=== PATIENT | male | born 1995 | race American Indian/Alaskan Native ===

== ENCOUNTER 2020-10-11 11:59 | Emergency (ER) | payer SELFPAY ==
[2020-10-11 12:38] VITALS: BP 128/57
--- NOTE | 2020-10-11 12:45 | Emergency Department Report ---
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 Patient states that he took pain medication last night around 9 PM. He denies any past medical history currently takes no medications on a daily basis and has no past medical history. MD Complaint: foot injury (Great toe) -: Last night Injury: Toes: Right (Great toe) Type of Injury: other Severity scale (0 -10): 4 Context: direct blow - Related Data Allergies Allergy/AdvReac Type Severity Reaction Status Date / Time No Known Allergies Allergy Unverified 10/11/20 12:35 ED Review of Systems ROS: Stated complaint: WORK INJURY/RT BIG TOE INJURY Other details as noted in HPI Comment: All other systems reviewed and negative ED Past Medical Hx - Past Medical History Previous Medical History?: No - Surgical History Past Surgical History?: No ED Physical Exam - General Limitations: No Limitations General appearance: alert, in no apparent distress - Head Head exam: Present: atraumatic, normocephalic - Eye Eye exam: Present: normal appearance - Neck Neck exam: Present: normal inspection, full ROM - Respiratory Respiratory exam: Absent: accessory muscle use - Expanded Lower Extremity Exam Right Hip exam: Present: normal inspection Upper Leg exam: Present: normal inspection Knee exam: Present: normal inspection Lower Leg exam: Present: normal inspection Foot/Toe exam: Present: full ROM, tenderness (Great toe). Absent: swelling, erythema Neuro vascular tendon exam: Present: no vascular compromise - Back Exam Back exam: Present: normal inspection - Neurological Exam Neurological exam: Present: alert, oriented X3, normal gait - Psychiatric Psychiatric exam: Present: normal affect, normal mood - Skin Skin exam: Present: warm, dry, intact, normal color. Absent: rash ED Course Vital Signs 10/11/20 12:37 Temperature 98.1 F Pulse Rate 68 Respiratory 20 Rate Blood Pressure 128/57 O2 Sat by Pulse 100 Oximetry ED Lower Extremity MDM - Radiology Data Radiology results: report reviewed Patient: ELLEN VINSON MR#: [id number] : 1995 Acct:[id number] Age/Sex: 24 / M ADM Date: 10/11/20 Loc: ED Attending Dr: Ordering Physician: ISMAEL BAKER Date of Service: 10/11/20 Procedure(s): XR foot 2V RT Accession Number(s): [id number] cc: ISMAEL BAKER Fluoro Time In Minutes: RIGHT FOOT 2 VIEWS INDICATION / CLINICAL INFORMATION: Great toe injury COMPARISON: None available. FINDINGS: BONES / JOINT(S): No acute fracture or subluxation. No significant arthritis. SOFT TISSUES: No significant abnormality. ADDITIONAL FINDINGS: None. 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 Patient states that he took pain medication last night around 9 PM. He denies any past medical history currently takes no medications on a daily basis and has no past medical history. X-ray ordered. Critical care attestation.: If time is entered above; I have spent that time in minutes in the direct care of this critically ill patient, excluding procedure time. ED Disposition Clinical Impression: Injury of left great toe Disposition: DC-01 TO HOME OR SELFCARE Is pt being admited?: No Does the pt Need Aspirin: No Condition: Stable Additional Instructions: X-ray is negative for any dislocation fracture subluxation or arthritis. Recommend [id number] Tylenol or ibuprofen for pain management. Referrals: TONEY SHAW MD [Staff Physician] - 3-5 Days Forms: Work/School Release Form(ED)
--- NOTE | 2020-10-11 13:22 | XRay Report ---
RIGHT FOOT 2 VIEWS INDICATION / CLINICAL INFORMATION: Great toe injury COMPARISON: None available. FINDINGS: BONES / JOINT(S): No acute fracture or subluxation. No significant arthritis. SOFT TISSUES: No significant abnormality. ADDITIONAL FINDINGS: None. Signer Name: Ryan Sandoval MD Signed: 10/11/2020 1:18 PM Workstation Name: [id number]
== END 2020-10-11 14:31 | disposition home or self-care (01) ==
LOC: ED 11:59
DX: S99.921A Unspecified injury of right foot, initial encounter (principal); X58.XXXA Exposure to other specified factors, initial encounter; Y93.89 Activity, other specified; Y92.89 Other specified places as the place of occurrence of the external cause; Y99.8 Other external cause status
CPT/HCPCS: 99283